=== PATIENT | female | born 1975 | race Caucasian/White ===

== ENCOUNTER 2018-08-18 05:17 | Emergency (ER) | payer MEDICAID ==
[~2018-08-18] VITALS: Ht 142.2 cm; Wt 80.9 kg
[2018-08-18 05:22] VITALS: Ht 142.2 cm; Wt 80.9 kg
[2018-08-18 08:23] VITALS: BP 130/76
== END 2018-08-18 08:23 | disposition home or self-care (01) ==
LOC: ED 05:17
DX: M79.661 Pain in right lower leg (principal); G89.29 Other chronic pain
CPT/HCPCS: Q0092

== ENCOUNTER 2018-11-26 01:12 | Emergency (ER) | payer OTHER ==
[~2018-11-26] VITALS: Ht 144.8 cm; Wt 48.5 kg
[2018-11-26 01:17] VITALS: BP 131/78
== END 2018-11-26 02:36 | disposition home or self-care (01) ==
LOC: ED 01:12
DX: M67.431 Ganglion, right wrist (principal); G89.29 Other chronic pain; Z98.890 Other specified postprocedural states

== ENCOUNTER 2018-12-05 02:38 | Emergency (ER) | payer MEDICAID ==
[~2018-12-05] VITALS: Ht 149.9 cm; Wt 49.9 kg
[2018-12-05 02:43] VITALS: Ht 149.9 cm; Wt 49.9 kg
[2018-12-05 05:26] LABS: APPEARANCE FLUID CLEAR; COLOR FLUID YELLOW; SOURCE FLUID JOINT
[2018-12-05 05:28] LABS: LYMPHOCYTE FLUID 10 %; RBC FLUID 4653 /cumm; WBC FLUID 3911 /cumm
[2018-12-05 06:00] VITALS: BP 138/83
== END 2018-12-05 06:00 | disposition home or self-care (01) ==
LOC: ED 02:38
PROVIDERS: Emergency Medicine
DX: M70.22 Olecranon bursitis, left elbow (principal); Z98.890 Other specified postprocedural states; Y93.89 Activity, other specified
CPT/HCPCS: J2001; Q0092

== ENCOUNTER 2018-12-05 15:19 | Emergency (ER) | payer OTHER | END 2018-12-05 15:33 | disposition left against medical advice (07) | LOC: ED 15:19 | DX: Z53.21 Procedure and treatment not carried out due to patient leaving prior to being seen by health care provider (principal) ==

== ENCOUNTER 2018-12-06 00:50 | Emergency (ER) | payer OTHER ==
[~2018-12-06] VITALS: Ht 149.9 cm; Wt 49.0 kg
[2018-12-06 01:03] VITALS: Ht 149.9 cm; Wt 49.0 kg
[2018-12-06 02:30] VITALS: BP 123/79
== END 2018-12-06 02:30 | disposition home or self-care (01) ==
LOC: ED 00:50
DX: M70.22 Olecranon bursitis, left elbow (principal); D17.21 Benign lipomatous neoplasm of skin and subcutaneous tissue of right arm; Z98.890 Other specified postprocedural states; Y93.89 Activity, other specified
CPT/HCPCS: J0690; J1885

== ENCOUNTER 2018-12-09 01:18 | Emergency (ER) | payer OTHER ==
[~2018-12-09] VITALS: Ht 142.2 cm; Wt 54.5 kg
[2018-12-09 01:22] VITALS: BP 120/101; Ht 142.2 cm; Wt 54.5 kg
== END 2018-12-09 02:24 | disposition home or self-care (01) ==
LOC: ED 01:18
DX: M25.531 Pain in right wrist (principal); M25.522 Pain in left elbow; Z98.890 Other specified postprocedural states
CPT/HCPCS: Q0092

== ENCOUNTER 2019-01-13 16:10 | Emergency (ER) | payer OTHER ==
[~2019-01-13] VITALS: Ht 149.9 cm; Wt 50.8 kg
[2019-01-13 16:13] VITALS: Ht 149.9 cm; Wt 50.8 kg
[2019-01-13 19:45] VITALS: BP 127/80
== END 2019-01-13 19:45 | disposition home or self-care (01) ==
LOC: ED 16:10
DX: L08.9 Local infection of the skin and subcutaneous tissue, unspecified (principal); Z98.890 Other specified postprocedural states
CPT/HCPCS: J0696; Q0092